=== PATIENT | female | born 1945 | race Caucasian/White ===

== ENCOUNTER 2017-08-16 22:09 | Emergency (ER) | payer MEDICARE, BC ==
[~2017-08-16] VITALS: Ht 167.6 cm; Wt 61.2 kg
[2017-08-16] MEDS ORDERED: METF10004 PO (22:27)
[2017-08-16] MEDS ORDERED: ATOR10TA PO (22:27)
[2017-08-16] MEDS ORDERED: INSULIN PUMP NOVOLOG (22:27)
[2017-08-16] MEDS ORDERED: SYNTHROID 100 MCG TAB (22:28)
[2017-08-16] MEDS ORDERED: SULFAMETH/TRIMETH 800/160 MG TABLET ONE (22:37)
[2017-08-16] MEDS ORDERED: MUPIROCIN 2% OINT 22 GM TUBE ONE (22:38)
--- NOTE | 2017-08-16 22:42 | NUR ---
Patient discharged to home in stable conditon. Written and verbal after care instructions given. Patient verbalizes understanding of instructions.
[2017-08-16 22:43] VITALS: BP 110/58
[2017-08-16] MEDS ORDERED: SULFAMETH/TRIMETH 800/160 MG TABLET PO ONE (22:45)
[2017-08-16] MEDS ORDERED: MUPIROCIN 2% OINT 22 GM TUBE TP ONE (22:45)
== END 2017-08-16 22:44 | disposition home or self-care (01) ==
LOC: EDSEX 22:12 → ER 22:12
DX: S81.801A Unspecified open wound, right lower leg, initial encounter (principal); L08.9 Local infection of the skin and subcutaneous tissue, unspecified; E11.9 Type 2 diabetes mellitus without complications; E78.00 Pure hypercholesterolemia, unspecified; Z79.4 Long term (current) use of insulin; Z79.84 Long term (current) use of oral hypoglycemic drugs; Z79.899 Other long term (current) drug therapy; X58.XXXA Exposure to other specified factors, initial encounter; Y93.89 Activity, other specified; Y92.89 Other specified places as the place of occurrence of the external cause; Y99.8 Other external cause status
CPT/HCPCS: A4663